=== PATIENT | male | born 1985 | race Caucasian/White ===

== ENCOUNTER 2016-09-21 20:26 | Emergency (ER) | payer SELFPAY ==
[~2016-09-21] VITALS: Ht 172.7 cm; Wt 60.0 kg
[2016-09-21 20:27] VITALS: BP 134/72; PULSE 79; RESP 18; TEMP 97.8; O2SAT 99
--- NOTE | 2016-09-21 21:09 | PD ---
HPI Chief Complaint: Complaint Time Seen by Provider: 21:04 Travel History International Travel<30 days: No Contact w/Intl Traveler<30days: No Traveled to known affect area: No History of Present Illness HPI 31-year-old male presents emergency department for evaluation of penis swelling. He states that sometime around 5:30 yesterday afternoon he had applied a penis pump in attempts to a large his penis. He states that after using the device he had noted significant swelling around the shaft of the penis just under the glans. It has not gone down in over 24 hours. He states that he has taken some ibuprofen without relief. He states that is not painful. He's been urinating normally. He denies any abdominal pain. Symptoms are moderate. No alleviating factors. PFSH Past Medical History Medical History: Denies Significant Hx Diminished Hearing: No Past Surgical History Surgical History: No Previous Surgery Social History Alcohol Use: No Tobacco Use: No Substance Use: No Allergies-Medications (Allergen,Severity, Reaction): Coded Allergies: No Known Allergies (Unverified , 09/21/16) Review of Systems Except as stated in HPI: all other systems reviewed are Neg Physical Exam Narrative GENERAL: This is a well-nourished, well-developed patient, in no apparent distress. SKIN: No rashes, ecchymoses or lesions. Warm and dry. HEAD: Atraumatic. Normocephalic. EYES: PERRL, EOMI, no discharge or injection. No scleral icterus. EARS: Clear NOSE: Nasal turbinates appear normal. THROAT: Mucosa pink and moist. Airway patent. NECK: Trachea midline. supple, moves head freely. LUNGS: Clear to auscultation. CV: Regular in rhythm. ABDOMEN: Soft nontender. EXT: No clubbing cyanosis or edema. GENITOURINARY: Circumcised. Testes descended bilaterally without evidence of rotation. No lesions or erythema. No urethral discharge. The patient has significant swelling of the shaft of the penis just beneath the glans and the area and which she had been circumcised. The skin is boggy when compressed. No significant pain. It does appear to be viable. No evidence of necrosis. There is no involvement in the glans. No involvement of the base of the penis. No scrotal involvement. Data Data Last Documented VS Vital Signs Date Time Temp Pulse Resp B/P Pulse Ox O2 Delivery O2 Flow Rate FiO2 4/8/17 20:56 18 09/21/16 20:27 97.8 79 134/72 99 Room Air MDM Medical Decision Making Medical Screen Exam Complete: Yes Emergency Medical Condition: Yes Medical Record Reviewed: Yes Differential Diagnosis Differential diagnosis: Fractured penis, urethritis, hematoma, traumatic edema Narrative Course The patient has traumatic edema from using a penis pump. I suspect this will gradually go down over time. He has no evidence of any necrosis. He is advised to elevate and ice for the next day. Recheck in 24 hours of symptoms do not resolve. Diagnosis Primary Impression: traumatic edema of the penis Patient Instructions: General Instructions Additional Instructions: Rest. Elevate your penis on a towel and apply a washcloth then ice. Do this over the next 24 hours. Be very careful not to over ice your penis and cause a Guzman injury. Recheck in 24 hours if symptoms do not resolve. Never use a penis pump again. Follow-up with a urologist Friday. Med/Other Pt SpecificInfo: No Meds Exist/No RX given Disposition: 01 DISCHARGE HOME Condition: Stable Jason Ndiaye Sep 21, 2016 21:09
== END 2016-09-21 21:37 | disposition home or self-care (01) ==
LOC: NEPD 20:26
DX: N48.89 Other specified disorders of penis (principal); Y82.8 Other medical devices associated with adverse incidents
CPT/HCPCS: 99283